=== PATIENT | female | born 1945 | race African-American/Black ===

== ENCOUNTER 2017-06-24 21:21 | Inpatient (IN) ==
[2017-06-24] MEDS ORDERED: VERSED IV ONE (21:25)
[2017-06-24 21:45] LABS: MANUAL DIFF NEEDED? NO
[2017-06-24 21:48] LABS: BASO% 0.4 % (0.0-0.8); EOS# 0.12 X1000 (0.0-0.7); EOS% 2.3 % (0.0-10.0); HEMATOCRIT 35.7 % (37.0-47.0); HEMOGLOBIN 11.4 g/dL (12.0-16.0); LYMPH# 2.17 X1000 (1.2-3.4); LYMPH% 42.1 % (20.5-51.1); MCHC 31.9 g/dL (33-37); MCV 87.7 FL (81-99); MONO# 0.39 X1000 (0.11-0.59); MONO% 7.6 % (1.7-9.3); MPV 10.5 FL (7.4-10.4); NEUT% 47.6 % (42.2-75.2); PLT 178 X1000 (130-400); RBC 4.07 XMIL (4.2-5.4)
[2017-06-24 22:02] LABS: ALBUMIN 3.9 g/dL (3.5-5.0); POTASSIUM 3.6 mmol/L (3.5-5.1); TOTAL BILIRUBIN 0.61 mg/dL (0.20-1.00); TOTAL PROTEIN 7.6 g/dL (6.3-8.3)
[2017-06-24 22:46] LABS: BILIRUBIN URINE NEGATIVE (NEGATIVE); BLOOD URINE NEGATIVE (NEGATIVE); COLOR YELLOW; GLUCOSE URINE NEGATIVE (NEGATIVE); LEUKOCYTES URINE MODERATE (NEGATIVE); NITRITE URINE NEGATIVE (NEGATIVE); PH URINE 6.5; PROTEIN URINE 30 mg/dL (NEGATIVE); SP GRAVITY URINE 1.006; TURBIDITY URINE HAZY (CLEAR); URINE MICRO REVIEW NEEDED? NO; UROBILINOGEN URINE NORMAL (NORMAL)
[2017-06-24 22:47] LABS: URINE SOURCE CATH
[2017-06-24 22:48] LABS: UR EPITHELIAL CELLS <10 /HPF (<10); URINE BACTERIA 1+ /HPF; URINE CULTURE NEEDED? YES; URINE RBC 20-40 /HPF (<10); URINE WBC <10 /HPF (<10)
[2017-06-24 23:04] LABS: UR AMPHETAMINES QUAL NONE DETECTED (NONE DETECT); UR BARBITUATES QUAL NONE DETECTED (NONE DETECT); UR BENZODIAZEPIN QUAL PRESUMPTIVE POSITIVE (NONE DETECT); UR CANNABINOIDS QUAL NONE DETECTED (NONE DETECT); UR COCAINE QUAL NONE DETECTED (NONE DETECT); UR METHADONE QUAL NONE DETECTED (NONE DETECT); UR OPIATES QUAL NONE DETECTED (NONE DETECT); UR OXYCODONE QUAL NONE DETECTED (NONE DETECT); UR PCP QUAL NONE DETECTED (NONE DETECT)
[2017-06-25] MEDS ORDERED: NS 1,000 ML IV ONE (01:02)
[2017-06-25] MEDS ORDERED: TYLENOL PO PRN (01:02)
[2017-06-25] MEDS ORDERED: ZOFRAN IV PRN (01:02)
[2017-06-25] MEDS ORDERED: KEPPRA PO ONE (01:02)
[2017-06-25] MEDS ORDERED: ATIVAN IV PRN (01:05)
[2017-06-25 07:19] LABS: HEMATOCRIT 33.2 % (37.0-47.0); HEMOGLOBIN 10.4 g/dL (12.0-16.0); MCH 27.6 PG (27-31); MCHC 31.3 g/dL (33-37); MCV 88.1 FL (81-99); MPV 10.3 FL (7.4-10.4); RBC 3.77 XMIL (4.2-5.4)
[2017-06-25 07:45] LABS: CALCIUM 9.2 mg/dL (8.8-10.2); POTASSIUM 3.9 mmol/L (3.5-5.1)
[2017-06-25] MEDS: LOTENSIN PO SCH (09:16)
[2017-06-25] MEDS: CELEXA PO SCH (09:16)
[2017-06-25] MEDS: ASPIRIN EC PO SCH (09:17)
[2017-06-25] MEDS: KEPPRA PO SCH ×2 (09:17→22:41)
[2017-06-25] MEDS: LOVENOX SUBQ SCH (09:20)
[2017-06-25] MEDS: LIPITOR PO SCH (22:41)
[2017-06-26] MEDS: LOVENOX SUBQ SCH (06:33)
[2017-06-26] MEDS: ASPIRIN EC PO SCH (08:32)
[2017-06-26] MEDS: CELEXA PO SCH (08:32)
[2017-06-26] MEDS: LOTENSIN PO SCH (08:33)
[2017-06-26] MEDS: KEPPRA PO SCH ×2 (08:33→21:50)
[2017-06-26] MEDS: LIPITOR PO SCH (21:50)
[2017-06-27] MEDS: LOVENOX SUBQ SCH (05:32)
[2017-06-27] MEDS ORDERED: CYANOCOBALAMIN IM ONE (06:13)
[2017-06-27] MEDS: ASPIRIN EC PO SCH (08:19)
[2017-06-27] MEDS: CELEXA PO SCH (08:19)
[2017-06-27] MEDS: KEPPRA PO SCH ×2 (08:19→21:39)
[2017-06-27] MEDS: NORVASC PO SCH (08:19)
[2017-06-27] MEDS: LOTENSIN PO SCH (08:19)
[2017-06-27] MEDS: LIPITOR PO SCH (21:39)
[2017-06-28] MEDS: SEPTRA DS PO SCH ×2 (00:58→08:23)
[2017-06-28] MEDS: LOVENOX SUBQ SCH (06:11)
[2017-06-28] MEDS ORDERED: CYANOCOBALAMIN IM ONE (06:32)
[2017-06-28 06:41] LABS: EOS# 0.16 X1000 (0.0-0.7); EOS% 3.5 % (0.0-10.0); HEMATOCRIT 36.7 % (37.0-47.0); HEMOGLOBIN 11.6 g/dL (12.0-16.0); LYMPH# 1.17 X1000 (1.2-3.4); LYMPH% 25.7 % (20.5-51.1); MANUAL DIFF NEEDED? NO; MCH 27.8 PG (27-31); MCHC 31.6 g/dL (33-37); MONO# 0.43 X1000 (0.11-0.59); MONO% 9.4 % (1.7-9.3); MPV 10.4 FL (7.4-10.4); NEUT% 61.4 % (42.2-75.2); PLT 170 X1000 (130-400); RBC 4.17 XMIL (4.2-5.4)
[2017-06-28 07:00] LABS: ALBUMIN 3.4 g/dL (3.5-5.0); CALCIUM 9.1 mg/dL (8.8-10.2); POTASSIUM 3.6 mmol/L (3.5-5.1); TOTAL BILIRUBIN 0.49 mg/dL (0.20-1.00); TOTAL PROTEIN 7.2 g/dL (6.3-8.3)
[2017-06-28 07:17] LABS: HEMOGLOBIN A1C 5.1 % (4.8-6.0)
[2017-06-28 07:49] VITALS: BP 142/68
[2017-06-28] MEDS: ASPIRIN EC PO SCH (08:22)
[2017-06-28] MEDS: NORVASC PO SCH (08:22)
[2017-06-28] MEDS: CELEXA PO SCH (08:22)
[2017-06-28] MEDS: KEPPRA PO SCH (08:22)
[2017-06-28] MEDS: LOTENSIN PO SCH (08:23)
== END 2017-06-28 16:35 | disposition home or self-care (01) ==
LOC: ED 21:21 → 4N 21:21 → SUATTDRO 06-25 01:20 → INTOOBSV 06-25 01:20 → OBSVTOIN 06-25 01:20
PROVIDERS: ADMIT Internal Medicine; ATTEND Internal Medicine

== ENCOUNTER 2019-05-29 19:59 | Inpatient (IN) ==
--- NOTE | 2019-05-29 20:23 | PROVIDER DOCUMENTATION ---
HPI-Neurological Disorder - General Chief Complaint: General Adult Stated Complaint: WEAKNESS Time Seen by Provider: 05/29/19 20:00 Source: patient, family Allergies/Adverse Reactions: Patient Allergies Allergy/AdvReac Type Severity Reaction Status Date / Time Penicillins Allergy Unknown Verified 06/24/17 22:12 Home Medications: Home Medication List Medication Instructions Recorded Confirmed Last Taken Type ATORVAstatin [Lipitor] 10 mg PO QPM 06/24/17 06/25/17 06/24/17 18:00 History BENAZEpril [Lotensin] 20 mg PO DAILY 06/24/17 06/25/17 06/24/17 08:00 History Citalopram [Celexa] 40 mg PO DAILY 06/24/17 06/25/17 06/24/17 08:00 History Aspirin [Adult Low Dose Aspirin EC] 81 mg PO DAILY 06/25/17 06/25/17 06/24/17 08:00 History Aspirin [Lo-Dose Aspirin EC] 81 mg PO DAILY 06/25/17 06/25/17 Unknown History Acetaminophen [Tylenol] 650 mg PO Q6H PRN PRN #0 tablet 06/28/17 Unknown Rx Amlodipine [Norvasc] 5 mg PO DAILY tablet 06/28/17 Unknown Rx Citalopram [Celexa] 40 mg PO DAILY tablet 06/28/17 Unknown Rx Sulfamethoxazole/Tmp D.s. [Septra 1 each PO BID tablet 06/28/17 Unknown Rx Ds] - History of Present Illness-Neuro Nature of Presenting Problem: 73 YOF PRESENTS VIA FAMILY FOR AMS AND HALLUCINATIONS. THE SON REPORTS SHE WAS TREATED AT [facility] ON 05/24/19 FOR R INNER EAR INFECTION AND DID NOT COMPLETE ABX. THE PATIENT IS CALM AND DENIES ALL SYMPTOMS OTHER THAN R EAR PAIN. Severity: reports: mild Onset/Duration: reports: unsure Timing: reports: still present Context: reports: recent infection, other (AMS) Character of Altered Mental Status: reports: confused, other (HALLUCINATIONS PER FAMILY) Any recent trauma/injury?: reports: none Character of Deficits: denies: new weakness, altered sensation, vision problem/glaucoma, impaired speech, impaired swallowing, decreased ability to stand, decreased ability to walk, falling New weakness or altered sensation location:: reports: none Cognitive Baseline: alert but confused Gait Baseline: walks without assistance Associated Symptoms: reports: confusion, weakness, other (HALLUCINATIONS) Similar Symptoms Previously?: No Recently seen or treated by another doctor?: Yes ([facility] ON 05/24) Review of Systems - Adult - REVIEW OF SYSTEMS - ADULT Constitutional: reports: no symptoms reported. denies: see HPI, chills, fever, fatique, night sweats, weight gain, weight loss, other Eyes: reports: no symptoms reported. denies: see HPI, discharge, dry eyes, decreased vision, blurred vision, double vision, eye pain, redness, other Ears, Nose, Mouth & Throat: reports: see HPI, ear pain. denies: no symptoms reported, ear discharge, hearing loss, tinnitus, epistaxis, sinus problem, nose pain, loose teeth, mouth/dental pain, mouth swelling, hoarseness, throat pain, throat swelling, other Cardiovascular: reports: no symptoms reported. denies: see HPI, chest pain, edema, heart murmur, irregular heart rate, orthopnea, palpitations, poor circu lation, PND, syncope, other Respiratory: reports: no symptoms reported. denies: see HPI, chronic cough, cough, dyspnea on exertion, excessive sputum production, hemoptysis, pleurisy, shortness of breath, wheezing, other Gastrointestinal: reports: no symptoms reported. denies: see HPI, abdominal pain, hematemesis, constipation, diarrhea, difficulty swallowing, frequent heartburn, nausea, poor appetite, rectal bleeding, vomiting, other Genitourinary: reports: no symptoms reported. denies: see HPI, dysuria, discharge, frequency, flank pain, frequent UTI's, hematuria, hesitency, incontinence, urinary retention, urgency, other Musculoskeletal: reports: muscle weakness. denies: no symptoms reported, see HPI, bone pain, back pain, frequent leg cramps, joint pain, joint swelling, muscle aches, neck pain, other Integumentary: reports: no symptoms reported. denies: see HPI, hives, hair loss, itching, mole changes, nail changes, rash, skin sores/ulcer, skin thickening, other Neurological: reports: no symptoms reported. denies: see HPI, ataxia, dizziness/vertigo, headache/migraines, loss of balance, numbness, paresthesia, seizure, slurred speech, syncope, tremors, other Psychiatric: reports: see HPI. denies: no symptoms reported, anxiety, anti- depressant use, alcohol/drug dependence, depression, emotional problems, insomnia, panic attacks, suicidal thoughts, other Endocrine: reports: no symptoms reported. denies: see HPI, change in skin pigment, excessive sweating, goiter, cold intolerance, heat intolerance, increased hunger, increased thirst, polyuria, other Hematologic/Lymphatic: reports: no symptoms reported. denies: see HPI, blood clots, easy bruising, low blood count, lymphedema, prolonged bleeding, swollen lymph nodes, transfusions, other Allergic/Immunologic: reports: no symptoms reported. denies: see HPI, allergic reactions, allergic rhinitis, asthma, eczema, food allergy, frequent infections, hay fever, hives, positive PPD, urticaria, other Past History - Adult - PAST MEDICAL HISTORY-ADULT Review of Records: reports: Nursing Assessment Review, Social history reviewed & non-contributory. Major Childhood Illnesses: reports: denies history Cardiovascular: reports: HTN, hyperlipidemia Respiratory: reports: denies history Gastrointestinal: reports: denies history Obstetrical/Gynecological: reports: denies history Genitourinary: reports: denies history Musculoskeletal: reports: denies history Neurological: reports: CVA Psychiatric: reports: depression Endocrine/Immune: reports: denies history Other Conditions: reports: denies history - PRIOR SURGERIES/PROCEDURES Surgical/Procedure History: reports: BTL - IMMUNIZATION STATUS Childhood Immunizations: See Nurse Assessment Flu Vaccine: See Nurse Assessment - FAMILY HISTORY Family History: reviewed, not pertinent Physical Exam- Neurological - Physical Exam-Neuro Initial Vital Signs Reviewed: Yes General Appearance: appears well, alert, no apparent distress Eye Exam: bilateral eye: normal inspection, PERRL HENMT: normocephalic/atraumatic, moist mucous membranes, TM abnormal Head Injury: no evidence of injury Neck: non-tender, full range of motion, supple Respiratory: chest non-tender, lungs clear, normal breath sounds, no pleuratic chest pain, no respiratory distress, no accessory muscle use Cardiovascular: normal peripheral pulses, regular rate, rhythm Abdominal Exam: normal bowel sounds, non tender, soft Lymphatic: no adenopathy Extremity: normal range of motion, non-tender cleat feeder Exam: normal hearing, PERRL Coordination/Gait: normal finger to nose Motor/Sensory: no motor deficit, no sensory deficit, no pronator drift Neurologic: grossly normal Integumentary: normal color, normal turgor, warm/dry Psych/Mental Status: normal mood/affect, oriented x 3 - Glascow Coma Scale Best Eye Response: (4) open spontaneously Best Verbal Response: (4) confused conversation Best Motor Response: (6) obeys commands Progress - PLAN OF CARE/RESULTS Progress/Plan/Lab Results: Vital Signs - 8 hr 05/29/19 20:03 Temperature 98.1 F Pulse Rate 76 Respiratory Rate 16 Blood Pressure 116/57 O2 Sat by Pulse Oximetry 99 Laboratory Results - last 24 hr 05/29/19 05/29/19 05/29/19 20:28 20:29 20:29 WBC 8.76 RBC 3.89 L Hgb 10.8 L Hct 30.3 L MCV 77.9 L MCH 27.8 MCHC 35.6 RDW Std Deviation 14.3 Plt Count 131 MPV 12.0 H Immature Gran % (Auto) 0.8 H Neut % (Auto) 79.4 H Lymph % (Auto) 8.1 L [place] % (Auto) 11.0 H Eos % (Auto) 0.2 Baso % (Auto) 0.5 Immature Gran # (Auto) 0.07 H Neut # (Auto) 6.96 H Lymph # (Auto) 0.71 L [place] # (Auto) 0.96 H Eos # (Auto) 0.02 Baso # (Auto) 0.04 PT INR PTT (Actin FS) Sodium 134 L Potassium 3.9 Chloride 89 L Carbon Dioxide 18 L Anion Gap 27 BUN 120 H Creatinine 9.6 H Estimated GFR/1.73 m2 4 BUN/Creatinine Ratio 13 Glucose 119 H POC Glucose 115 H Calculated Osmolality 308 Calcium 8.8 Total Bilirubin 2.90 H AST 36 H ALT 25 Alkaline Phosphatase 134 H Total Protein 7.6 Albumin 3.1 L Globulin 5.0 Albumin/Globulin Ratio 1.0 Urine Source Urine Color Urine Clarity Urine pH Ur Specific [place] Urine Protein Urine Ketones Urine Blood Urine Nitrite Urine Bilirubin Urine Urobilinogen Urine Microscopic RBC Urine WBC Urine Microscopic WBC Ur Epithelial Cells Urine Bacteria Urine Glucose Urine Opiates Screen Ur Oxycodone Screen Urine Methadone Screen U Propoxyphene Qual Ur Barbituates Screen Ur Tricyclics Screen Ur Phencyclidine Scrn Ur Amphetamines Screen U Methamphetamines Scrn U Benzodiazepines Scrn Urine Cocaine Screen U Cannabinoids Screen 05/29/19 05/29/19 05/29/19 20:29 21:13 21:13 WBC RBC Hgb Hct MCV MCH MCHC RDW Std Deviation Plt Count MPV Immature Gran % (Auto) Neut % (Auto) Lymph % (Auto) [place] % (Auto) Eos % (Auto) Baso % (Auto) Immature Gran # (Auto) Neut # (Auto) Lymph # (Auto) [place] # (Auto) Eos # (Auto) Baso # (Auto) PT 14.2 INR 1.05 PTT (Actin FS) 27.4 Sodium Potassium Chloride Carbon Dioxide Anion Gap BUN Creatinine Estimated GFR/1.73 m2 BUN/Creatinine Ratio Glucose POC Glucose Calculated Osmolality Calcium Total Bilirubin AST ALT Alkaline Phosphatase Total Protein Albumin Globulin Albumin/Globulin Ratio Urine Source CLEAN CATCH Urine Color YELLOW Urine Clarity SL. CLOUDY A Urine pH 5.0 Ur Specific [place] 1.010 Urine Protein TRACE A Urine Ketones 1+(Small) A Urine Blood 2+ A Urine Nitrite NEGATIVE Urine Bilirubin NEGATIVE Urine Urobilinogen 1 Urine Microscopic RBC 10-20 A Urine WBC TRACE A Urine Microscopic WBC <10 Ur Epithelial Cells <10 Urine Bacteria 2+ Urine Glucose NEGATIVE Urine Opiates Screen NONE DETECTED Ur Oxycodone Screen NONE DETECTED Urine Methadone Screen NONE DETECTED U Propoxyphene Qual NONE DETECTED Ur Barbituates Screen NONE DETECTED Ur Tricyclics Screen NONE DETECTED Ur Phencyclidine Scrn NONE DETECTED Ur Amphetamines Screen NONE DETECTED U Methamphetamines Scrn NONE DETECTED U Benzodiazepines Scrn NONE DETECTED Urine Cocaine Screen NONE DETECTED U Cannabinoids Screen NONE DETECTED Orders Category Date Time Status FSBS [Finger Stick Blood Sugar (ED)] DIRECTED Care 05/29/19 20:16 Active Saline Loc NOW Care 05/29/19 20:[address] HEAD W/O CONTRAST [CT] Stat Exams 05/29/19 20:15 Completed CBC WITH ELECTRONIC DIFF [HEME] Stat Lab 05/29/19 20:29 Completed COMPREHENSIVE METABOLIC PANEL [CHEM] Stat Lab 05/29/19 20:29 Completed PROTIME WITH INR [COAG] Stat Lab 05/29/19 20:29 Completed PTT [COAG] Stat Lab 05/29/19 20:29 Completed UA NIMS W/REFLEX CULT PL [URINALYSIS] Stat Lab 05/29/19 21:13 Completed URINE CULTURE [RM] Routine Lab 05/29/19 21:38 Ordered URINE DRUG SCREEN PL Stat Lab 05/29/19 21:13 Completed 0.9% Sodium Chloride Inj [Ns] 1,000 ml Med 05/29/19 21:25 Active IV 999 mls/hr EKG [EKG] Stat Ther 05/29/19 20:23 Ordered Result Diagrams: 05/29/19 20:29 05/29/19 20:29 - CT/MRI 1 CT Study: Head Impression: See EMR Report (EXAM: CT HEAD W/O CONTRAST 05/29/2019 HISTORY: AMS TECHNIQUE: This exam was performed using automated exposure control, adjustment of mA or kV according to patient size, and/or use of iterative reconstruction technique. COMMENT: The current study is compared with the previous examination of 06/24/2017 there are encephalomalacic changes in the frontal white matter bilaterally and posteriorly in the white matter and cortex of the posterior left parietal lobe. These findings were also present at the time the previous study. There is a small lacune in the basal ganglia on the right which was also present previously. There is no evidence of bleed or abnormal extra-axial fluid collection. The appearance of the calvarium has not changed significantly in the visualized paranasal sinuses are clear. IMPRESSION: Chronic encephalomalacic changes. No evidence of acute disease. Electronically signed by Kolby Leon 05/29/2019 8:49 PM 05/29/192048 In terpreting Physician: Kolby Leon MD Dictated Date/Time: 05/29/192046 cc: Lexy Reynoso; Den Esquivel MD) - CONSULTS/PCP/HOSPITALIST Notification #1 *Consult/PCP/Hospitalist*: dr GIRARD Time Discussed: 21:49 Consult Disposition: Admit Departure - Departure Date of Disposition Decision: 05/29/19 Time of Disposition Decision: 21:49 DIAGNOSIS: Acute renal failure, UTI (urinary tract infection) Disposition: HOME 01 Certified Medical Emergency: Emergent Condition: Stable Referrals and Follow-Ups: Den Esquivel MD [Primary Care Provider] - - Critical Care Note This patient required my direct & personal management of CC.: No Attestation - Physician/ ROB Attestation Patient care was provided by Advanced Practice Provider:: Yes Advanced Practice Provider:: Lexy Reynoso Advanced Practice Provider documentation review:: The Mid-level provider documentation, treatment plan and medical decision making was reviewed by the physician who agrees with all treatment and medical decision making by the MLP. The physician spent face to face time with patient:: No Advanced Practice Provider documentation review:: Supervising physician onsite and consulted in the evaluation and care of this patient. The physician did not have a face to face encounter with the patient.
--- NOTE | 2019-05-29 20:52 | Diag Imaging Result Doc PS360 ---
EXAM: CT HEAD W/O CONTRAST 05/29/2019 HISTORY: AMS TECHNIQUE: This exam was performed using automated exposure control, adjustment of mA or kV according to patient size, and/or use of iterative reconstruction technique. COMMENT: The current study is compared with the previous examination of 06/24/2017 there are encephalomalacic changes in the frontal white matter bilaterally and posteriorly in the white matter and cortex of the posterior left parietal lobe. These findings were also present at the time the previous study. There is a small lacune in the basal ganglia on the right which was also present previously. There is no evidence of bleed or abnormal extra-axial fluid collection. The appearance of the calvarium has not changed significantly in the visualized paranasal sinuses are clear. IMPRESSION: Chronic encephalomalacic changes. No evidence of acute disease. Electronically signed by Kolby Leon 05/29/2019 8:49 PM
[2019-05-29 21:05] LABS: BASO# 0.04 X1000 (0.0-0.2); BASO% 0.5 % (0.0-0.8); EOS# 0.02 X1000 (0.0-0.7); EOS% 0.2 % (0.0-10.0); HEMATOCRIT 30.3 % (37.0-47.0); HEMOGLOBIN 10.8 g/dL (12.0-16.0); IMM GRAN# 0.07 X1000 (0.0-0.04); IMM GRAN% 0.8 % (0.0-0.5); LYMPH# 0.71 X1000 (1.2-3.4); LYMPH% 8.1 % (20.5-51.1); MCH 27.8 PG (27-31); MCHC 35.6 g/dL (33-37); MCV 77.9 FL (81-99); MONO# 0.96 X1000 (0.11-0.59); NEUT# 6.96 X1000 (1.4-6.5); NEUT% 79.4 % (42.2-75.2); PLT 131 X1000 (130-400); RBC 3.89 XMIL (4.2-5.4); RDW 14.3 % (11.5-14.5); WBC 8.76 X1000 (4.8-10.8)
[2019-05-29 21:17] LABS: INR 1.05; PROTIME 14.2 Seconds (11.0-16.0)
[2019-05-29 21:18] LABS: PTT 27.4 Seconds (22.3-41.8)
[2019-05-29 21:23] LABS: ALBUMIN 3.1 g/dL (3.5-5.0); CALCIUM 8.8 mg/dL (8.8-10.2); CREATININE 9.6 mg/dL (0.5-0.9); POTASSIUM 3.9 mmol/L (3.5-5.1); TOTAL BILIRUBIN 2.9 mg/dL (0.20-1.00); TOTAL PROTEIN 7.6 g/dL (6.3-8.3)
[2019-05-29] MEDS ORDERED: NS 1,000 ML IV ONE (21:25)
[2019-05-29 21:36] LABS: BILIRUBIN URINE NEGATIVE (NEGATIVE); BLOOD URINE 2+ (NEGATIVE); GLUCOSE URINE NEGATIVE (NEGATIVE); KETONE URINE 1+(Small) mg/dL (NEGATIVE); LEUKOCYTES URINE TRACE (NEGATIVE); NITRITE URINE NEGATIVE (NEGATIVE); PROTEIN URINE TRACE mg/dL (NEGATIVE); UROBILINOGEN URINE 1 mg/dL
[2019-05-29 21:37] LABS: CLARITY SL. CLOUDY (CLEAR); COLOR YELLOW
[2019-05-29 21:38] LABS: UR AMPHETAMINES QUAL NONE DETECTED (NONE DETECT); UR BARBITUATES QUAL NONE DETECTED (NONE DETECT); UR BENZODIAZEPIN QUAL NONE DETECTED (NONE DETECT); UR CANNABINOIDS QUAL NONE DETECTED (NONE DETECT); UR COCAINE QUAL NONE DETECTED (NONE DETECT); UR METHADONE QUAL NONE DETECTED (NONE DETECT); UR METHAMPHETAMINE QUAL NONE DETECTED (NONE DETECT); UR OPIATES QUAL NONE DETECTED (NONE DETECT); UR OXYCODONE QUAL NONE DETECTED (NONE DETECT); UR PCP QUAL NONE DETECTED (NONE DETECT); UR PROPOXYPHENE QUAL NONE DETECTED (NONE DETECT); UR TCA QUAL NONE DETECTED (NONE DETECT); URINE BACTERIA 2+ /HFP; URINE EPITHELIAL CELLS <10 /HPF (<10); URINE SOURCE CLEAN CATCH; URINE WBC <10 /HPF (<10)
[2019-05-30] MEDS ORDERED: TYLENOL PO PRN (00:26)
[2019-05-30] MEDS ORDERED: ZOFRAN IV PRN (00:26)
[2019-05-30] MEDS ORDERED: NS 1,000 ML IV SCH (00:30)
[2019-05-30] MEDS ORDERED: NS 500 ML IV ONE (00:38)
[2019-05-30] MEDS: SODIUM BICARBONATE 8.4% 100 MEQ in D5W 1,000 ML IV SCH ×2 (01:21→13:46)
--- NOTE | 2019-05-30 01:30 | HISTORY AND PHYSICAL ---
REASON FOR ADMISSION: Confusion for the last couple of days. HISTORY OF PRESENT ILLNESS: Ms. Vesta Lemos is a 73-year-old, woman with past medical history of hypertension, depression, hyperlipidemia, and 2 prior CVAs. Patient is an extremely unreliable historian, no family members at bedside to give any history. The past says she came in because she was feeling cold and because her son was concerned that she was not looking right. Other than that, the patient herself denies any cardiorespiratory complaints, any GI or complaints, any genitourinary complaints. No focal neurological complaints. As I stated before, patient is not a reliable historian but from the records, it states patient had seen her primary care physician a few days ago for an ear infection, was prescribed some antibiotics, type unknown. Over the last day or so, the patient started becoming more confused culminating with visual hallucinations at home. She was then brought into the ER to be evaluated, and it was noted that her BUN was elevated at 120, creatinine was 9.6. The patient denies any fever or chills, any cough, any other additional cardiorespiratory issues. Currently, she only feels very cold. She denies any otalgia or any ear infections at this point in time. REVIEW OF SYSTEMS: Negative per patient. ALLERGIES: Penicillin. HOME MEDICATIONS: Have not been reconciled but, per her old records, she was an MAHENDRA inhibitor, and I see that she is also taken (per old records), Bactrim, Norvasc, Celexa, aspirin, atorvastatin. She denies any new medications or any [id number] medications. SURGICAL HISTORY: Tubal ligation, appendectomy, tonsillectomy. SOCIAL HISTORY: Lives alone. Does not smoke, drink, or use illicit drugs. According to the patient, her family members check on her. She also tells me that she walks a lot even in the hot sun, but can not tell me if she has been sweating excessively. FAMILY HISTORY: Notable for diabetes, heart disease, breast cancer, DVTs. LABORATORY WORK: White count 8000, hemoglobin 10 and hematocrit 30, platelets 131,000, 79% neutrophils. BUN 120, creatinine 9.6. Sodium 134, bicarb is 18, total bilirubin is 3, AST 36, ALT 25, alkaline phosphatase 134. PVT is normal. Urine drug screen is negative. Urinalysis 2+ blood, 1+ ketone, 2+ bacteria, 10 to [address], chronic encephalomalacia noted. PHYSICAL EXAMINATION: VITAL SIGNS: Blood pressure is 112/50, heart rate is 75, respiratory rate is 19, temperature 98.5 degrees. GENERAL: An elderly woman. She is alert and oriented to person and place, but not to time. HEENT: Head is normocephalic, atraumatic. Eyes: FERMIN, EOMI. She is anicteric. Not pale. ENT: Shows that has mild dry xerostomia. No oropharyngeal exudates noted. There is some cyanosis. NECK: Supple. No JVD or carotid bruit. No thyromegaly. CHEST: Clear when auscultated. Good air entry both lung vital. CARDIOVASCULAR: First and second heart sounds are heard. No gallops, murmurs, rubs. Rhythm is regular. ABDOMEN: Slightly protuberant, soft, nontender. No mass or organomegaly. Bowel sounds are hypoactive. RECTAL: Deferred at this time. EXTREMITIES: Patient has slightly diminished pulses but irregular, symmetrical. Trace edema. No clubbing or peripheral cyanosis. NEUROLOGICAL: No gross focal deficits. No asterixis. SKIN: Intact. No breakdown or lesions are noted. Good turgor. MUSCULOSKELETAL: Grossly normal. ASSESSMENT: 1. Acute kidney injury, KDIGO stage III. 2. Hypertension. 3. Metabolic encephalopathy. 4. Anemia. 5. Pyuria. PLAN: The patient will be hydrated with normal saline, but maintenance fluids over the next 24 hours with sodium bicarb. The etiology of this could be multifactorial. Based on her home medication list, patient is on an MAHENDRA inhibitor and may have taken a sulfa drug, i.e. Bactrim. The combination of these 2 may have precipitated acute kidney injury, but also, the patient may have also had volume loss from sweating, for which she says she engages in walking outside in the hot sun. We will consult Dr. Ferreira to see patient. We will also order an abdominal ultrasound to evaluate kidneys to rule out obstruction, and also to evaluate for elevated bilirubin. Avoid any potentially nephrotoxic medications. We will repeat a BMP daily and monitor progress. May need to put in a Jeffries catheter over the next 24 to 48 hours to monitor output. If patient is having a hard time comprehending instructions, I do believe patient is mildly confused and patient, in my opinion, is able to void in the potty chair if given a chance. Because of evidence of pyuria in the patient's urinalysis, I would be concerned about the patient having more extensive urinary tract infection. A Jeffries catheter was placed. Would also recommend very conservative blood pressure control in light of decreased renal perfusion. cc: Steffen Yanez MD MTDD
[2019-05-30 06:41] LABS: UR CREAT RANDOM 79.6 mg/dL (11-20)
[2019-05-30 07:02] LABS: BASO# 0.01 X1000 (0.0-0.2); BASO% 0.2 % (0.0-0.8); EOS# 0.02 X1000 (0.0-0.7); EOS% 0.3 % (0.0-10.0); HEMOGLOBIN 8.4 g/dL (12.0-16.0); IMM GRAN# 0.03 X1000 (0.0-0.04); IMM GRAN% 0.5 % (0.0-0.5); LYMPH# 0.63 X1000 (1.2-3.4); LYMPH% 9.6 % (20.5-51.1); MCH 26.9 PG (27-31); MCV 76.9 FL (81-99); MONO# 0.78 X1000 (0.11-0.59); MONO% 11.9 % (1.7-9.3); MPV 11.1 FL (7.4-10.4); NEUT# 5.06 X1000 (1.4-6.5); NEUT% 77.5 % (42.2-75.2); PLT 125 X1000 (130-400); RBC 3.12 XMIL (4.2-5.4); RDW 13.8 % (11.5-14.5); WBC 6.53 X1000 (4.8-10.8)
[2019-05-30 07:15] LABS: ALB/GLOB RATIO 0.8; ALBUMIN 2.4 g/dL (3.5-5.0); CREATININE 8.1 mg/dL (0.5-0.9); POTASSIUM 3.3 mmol/L (3.5-5.1); TOTAL BILIRUBIN 2.19 mg/dL (0.20-1.00); TOTAL PROTEIN 5.6 g/dL (6.3-8.3)
--- NOTE | 2019-05-30 07:32 | PROGRESS NOTE ---
DATE: 05/30/2019 SUBJECTIVE: Ms. Lemos is doing fair. Patient admitted yesterday with confusion, metabolic encephalopathy, acute kidney injury. The patient is vague and a poor historian. The patient went to the urgent care for an ear infection. The patient was given antibiotics which patient took 3 to 4 pills. Patient had significant diarrhea. According to son, she had some confusion. The patient was brought to the emergency room. She was found to have acute kidney injury. The patient is very vague and a poor historian. The patient had a history of hypertension, seizure disorder, chronic kidney disease, depression. Admission history and physical noted. OBJECTIVE: Vital Signs: Blood pressure 116/42, pulse 72, respirations 18, temperature 99.3 degrees. Skin: Senile turgor. Neck: Supple. No JVD. Lungs: Bibasilar crepitations. Heart: S1 and S2 heard. Abdomen: Soft, nontender. Bowel sounds present. TYRE RETREADER: Alert, awake. Able to move all 4 limbs. Admission Laboratory Data: Noted. CBC done today. Hemoglobin 8.4, hematocrit 24. BMP result is pending. CONSIDERATION: 1. Acute kidney injury. 2. History of hypertension but blood pressure is low-normal. 3. History of otitis. I did offer patient to go to the ENT but patient could not go in the past. 4. Seizure disorder. 5. Chronic kidney disease. PLAN: I am going to check CPK to look for rhabdomyolysis. Continue rest of the treatment. IV hydration. Start her on Rocephin. Overall plan discussed with the family. They are in agreement. cc: Den Esquivel MD
[2019-05-30 08:19] LABS: BANDS 6 % (0-1); LYMPHS 2 % (21-51); MONO 6 % (1-9); SEGS 84 % (42-75)
[2019-05-30] MEDS: ROCEPHIN 1 GM in NS 50 ML IV SCH (11:22)
--- NOTE | 2019-05-30 15:10 | Diag Imaging Result Doc PS360 ---
EXAM: US RENAL 2 (RETROPER) COMPLETE 05/30/2019 HISTORY: AVERY TECHNIQUE: Renal ultrasound COMMENT: The right kidney is 9.9 x 4.6 x 4.1 cm the left is 9.5 x 4.5 x 4.7 cm. There is a 1.7 cm cyst in the upper pole of the left kidney. The bladder is not identified. IMPRESSION: No evidence of obstructive uropathy. Electronically signed by Kolby Leon 05/30/2019 3:08 PM
--- NOTE | 2019-05-30 18:08 | NEPHROLOGY CONSULTATION ---
DATE: 05/30/2019 REASON FOR ADMISSION: Confusion, weakness, acute kidney injury. CONSULTING PHYSICIAN: Dr. Yanez REASON FOR CONSULTATION: Assist with Management of Acute kidney injury. HISTORY OF PRESENT ILLNESS: This is a 73 -year-old female with a past medical history of cerebrovascular accident, seizure, hypertension, hyperlipidemia. The patient states that she had an ear infection and was sick. She states that she went to Urgent Care where she was placed on antibiotics. This appears to be doxycycline. There is some question if she had Bactrim as well. The patient stated that over the last several days she had worsening confusion. Family noted her having hallucinations. In the emergency room she was brought in for evaluation. She was noted to have an elevated BUN of 120, creatinine of 9.6, sodium 134, potassium 3.9, CO2 18. Her urine had trace protein, 1+ ketones, 2+ blood. She has been treated overnight with IV fluids. It was noted that her home medications have been held. This does include benazepril and today her creatinine is down to 8.1. Potassium 3.3, sodium 134, and CO2 has improved to 20. PAST MEDICAL HISTORY: As noted above. PAST SURGICAL HISTORY: She has had a tubal ligation, appendectomy, tonsillectomy. ALLERGIES: Penicillin. HOME MEDICATIONS: Lotensin, Celexa, aspirin, Norvasc, again doxycycline, Keppra. FAMILY HISTORY: Diabetes, heart disease. SOCIAL HISTORY: She has a son and [id number] who check on her on a regular basis. She is able to live at home. She is able to do all of her chores at home and cook and clean for herself. REVIEW OF SYSTEMS: Pertinent positives noted above in the history of present illness. Primarily confusion, hallucinations, decreased oral intake. PHYSICAL EXAMINATION: Vital Signs: Temperature 98.6, pulse 65, respiratory rate 18, blood pressure 113/51. Intake 1/5 liters, output was not measured. General: This is an elderly female, resting in bed. She is awake and alert. She does not appear in acute distress. HEENT: Normocephalic, atraumatic. PERRL. Neck: Supple without jugular venous distention. Cardiovascular: Regular rate and rhythm. There is no murmur or gallop appreciated. Pulmonary: She has equal excursion. She has no increased work of breathing. Abdomen: Soft, positive bowel sounds. No tenderness. : Not inspected. EXTREMITIES: No clubbing, cyanosis or edema. Integumentary: Skin warm and dry. Neuro: Grossly nonfocal. LAB DATA: As noted above. Her most recent labs sodium 134, potassium 3.3, chloride 96, CO2 20, BUN 119, creatinine 8.1, calcium 8, albumin 2.4. ASSESSMENT/PLAN: 1. Acute kidney injury. The patient's old historical data indicate that back in 2017 she had a creatinine of 1.2 and 1.3. Appears to be underlying chronic disease with overlying acute kidney injury from decreased oral intake plus benazepril plus antibiotic use. Current use of doxycycline should not affect kidney function, however. It is unclear if she had been on Bactrim or another nephrotoxic antibiotic prior. We will complete her work up with urine electrolytes and a renal ultrasound. Would anticipate improvement within the next 24 hours. 2. Electrolytes, acid based balance. No change since the current treatment plan. 3. Hypertension. Currently controlled. Again hold her benazepril, use adjunct therapy as warranted. 4. Pyuria. She is on appropriately dosed antibiotics at this time for that in the form of ceftriaxone. Dictated by DAGMAR Márquez for Mark Ferreira MD Face to face encounter, data reviewed, discussed with Jean Paul Dyer on 05/30/19. I agree with the above assessment and plan of care. cc: MD Den Hart MD [facility]PITALBlane
[2019-05-31] MEDS: SODIUM BICARBONATE 8.4% 100 MEQ in D5W 1,000 ML IV SCH (00:56)
[2019-05-31] MEDS ORDERED: POTASSIUM CHLORIDE 10 MEQ in NS 1,000 ML IV SCH (04:15)
[2019-05-31] MEDS: ROCEPHIN 1 GM in NS 50 ML IV SCH (06:26)
[2019-05-31 06:50] LABS: ALB/GLOB RATIO 0.7; ALBUMIN 2.2 g/dL (3.5-5.0); CALCIUM 7.8 mg/dL (8.8-10.2); CREATININE 7.2 mg/dL (0.5-0.9); TOTAL BILIRUBIN 1.61 mg/dL (0.20-1.00); TOTAL PROTEIN 5.3 g/dL (6.3-8.3)
--- NOTE | 2019-05-31 06:55 | PROGRESS NOTE ---
DATE: 05/31/2019 SUBJECTIVE: Ms. Lemos is doing fair, tolerating fluid well. No symptoms suggestive of fluid overload or unusual shortness of breath. No typical chest pain or palpitations. Denied any nausea or vomiting. No high-grade fever or chills. Tolerating Rocephin well. No recent seizure- type episode. Patient admitted with acute renal failure. I reviewed her last labs done in my office recently, and her renal function was normal. I reviewed medication given from urgent care, and it was doxycycline. The medicine I gave her in the office was Ceftin or Omnicef for otitis. PAST MEDICAL HISTORY: Hypertension, seizure disorder, depression, hyperlipidemia, gastritis, history of CVA. OBJECTIVE: Vital Signs: Her vital signs are noted. Blood pressure 107/55, pulse 57, respirations 17, temperature 98.8 degrees. HEENT: Head is atraumatic, normocephalic. [place] conjunctivae. Anicteric sclerae. Extraocular muscle movement normal. Fundus cannot be penetrated. Good oral hygiene. No tonsillopharyngeal congestion or exudate. Neck: Supple. No JVD. Lungs: Bibasilar crepitations. Heart: S1 and S2 heard. Abdomen: Soft, globular. Bowel sounds present. Extremities: No cyanosis, clubbing. No acute DVT. Central Nervous System: Alert, awake, able to move all 4 limbs. ASSESSMENT: Patient's problems include: 1. Acute renal failure, most likely acute tubular necrosis, etiology not clear. On renal ultrasound, there was no evidence of obstructive uropathy. 2. History of hypertension, but patient has low blood pressure now. 3. Recurrent otitis. 4. Seizure disorder. 5. Hyperlipidemia. 6. Depression. PLAN: We will continue current treatment. Close observation. Gentle hydration, watch for fluid overload. The patient is on IV antibiotics. Her urinalysis did reveal UTI. Urine culture result is pending. Overall plan discussed with the patient. I did check total CPK to look for rhabdomyolysis, and it was negative. Overall plan discussed with the patient. cc: Den Esquivel MD
[2019-05-31 06:56] LABS: BASO# 0.02 X1000 (0.0-0.2); BASO% 0.3 % (0.0-0.8); EOS# 0.04 X1000 (0.0-0.7); EOS% 0.5 % (0.0-10.0); HEMATOCRIT 22.4 % (37.0-47.0); HEMOGLOBIN 7.9 g/dL (12.0-16.0); IMM GRAN# 0.09 X1000 (0.0-0.04); IMM GRAN% 1.2 % (0.0-0.5); LYMPH# 0.76 X1000 (1.2-3.4); LYMPH% 10.1 % (20.5-51.1); MCH 27.1 PG (27-31); MCHC 35.3 g/dL (33-37); MCV 76.7 FL (81-99); MONO# 0.83 X1000 (0.11-0.59); MPV 10.9 FL (7.4-10.4); NEUT# 5.78 X1000 (1.4-6.5); NEUT% 76.9 % (42.2-75.2); PLT 162 X1000 (130-400); RBC 2.92 XMIL (4.2-5.4); RDW 13.4 % (11.5-14.5); WBC 7.52 X1000 (4.8-10.8)
[2019-05-31 07:02] LABS: LYMPHS 6 % (21-51); MONO 10 % (1-9); NRBC 1 % (0-0); SEGS 82 % (42-75)
[2019-05-31 07:06] LABS: POTASSIUM 2.5 mmol/L (3.5-5.1)
[2019-05-31] MEDS ORDERED: KLOR-CON PO ONE ×3 (07:11→23:15)
--- NOTE | 2019-05-31 08:33 | Diag Imaging Result Doc PS360 ---
EXAM: CHEST-2 VIEWS 05/31/2019 HISTORY: hypoxia TECHNIQUE: PA and lateral chest COMMENT: There are ill-defined opacities in the posterior lower lobes bilaterally. The inspiration is slightly suboptimal. IMPRESSION: Bibasilar atelectasis versus pneumonia. Electronically signed by Kolby Leon 05/31/2019 8:31 AM
[2019-05-31] MEDS ORDERED: KEPPRA PO SCH ×2 (09:00)
[2019-05-31] MEDS: KEPPRA PO SCH ×2 (12:17→22:54)
[2019-05-31] MEDS: POTASSIUM CHLORIDE 10 MEQ in NS 1,000 ML IV SCH ×3 (12:17→22:54)
--- NOTE | 2019-05-31 14:29 | NEPHROLOGY PROGRESS NOTE ---
DATE: 05/31/2019 SUBJECTIVE: Patient resting in bed. No complaints. OBJECTIVE: Vital Signs: Temperature 98.8, pulse 57, respiratory rate 16, blood pressure 107/55. Intake 2.4 L; output not measured. General: This is an elderly female resting in bed. She does not appear in acute distress. HEENT: Normocephalic, atraumatic. FERMIN. Neck: Supple. There is no JVD. Cardiovascular: Regular rate and rhythm. Pulmonary: Clear bilaterally. Abdomen: Soft with positive bowel sounds. Extremities: There is no clubbing or cyanosis. Integumentary: Normal skin. LAB DATA: Sodium 133, potassium 2.5, CO2 26, creatinine 7.2 (8.1). Calcium 7.8. ASSESSMENT AND PLAN: Acute on chronic kidney disease. Renal function has continued to improve at a consistent rate since admission and treatment with intravenous fluids. Would continue this current treatment plan. The patient has no indication for intervention otherwise. Dictated by DAGMAR Márquez for Mark Ferreira MD Face to face encounter, data reviewed, discussed with Jean Paul Dyer on 05/31/19. I agree with the above assessment and plan of care. cc: MD Den Hart MD [facility]
[2019-05-31 16:07] LABS: ALB/GLOB RATIO 0.6; CALCIUM 7.8 mg/dL (8.8-10.2); CREATININE 7.4 mg/dL (0.5-0.9); POTASSIUM 3.2 mmol/L (3.5-5.1); TOTAL BILIRUBIN 1.26 mg/dL (0.20-1.00); TOTAL PROTEIN 5.6 g/dL (6.3-8.3)
[2019-06-01] MEDS: POTASSIUM CHLORIDE 10 MEQ in NS 1,000 ML IV SCH ×2 (01:31→11:43)
[2019-06-01 07:03] LABS: BASO# 0.01 X1000 (0.0-0.2); BASO% 0.1 % (0.0-0.8); EOS# 0.03 X1000 (0.0-0.7); EOS% 0.4 % (0.0-10.0); IMM GRAN# 0.12 X1000 (0.0-0.04); IMM GRAN% 1.5 % (0.0-0.5); LYMPH# 0.94 X1000 (1.2-3.4); LYMPH% 12.1 % (20.5-51.1); MCH 27.1 PG (27-31); MCHC 34.8 g/dL (33-37); MONO# 0.84 X1000 (0.11-0.59); MONO% 10.8 % (1.7-9.3); MPV 10.6 FL (7.4-10.4); NEUT# 5.83 X1000 (1.4-6.5); NEUT% 75.1 % (42.2-75.2); PLT 217 X1000 (130-400); RBC 2.95 XMIL (4.2-5.4); RDW 13.6 % (11.5-14.5); WBC 7.77 X1000 (4.8-10.8)
[2019-06-01 07:39] LABS: ALB/GLOB RATIO 0.6; CALCIUM 7.9 mg/dL (8.8-10.2); CREATININE 5.8 mg/dL (0.5-0.9); POTASSIUM 3.2 mmol/L (3.5-5.1); TOTAL BILIRUBIN 1.1 mg/dL (0.20-1.00); TOTAL PROTEIN 5.2 g/dL (6.3-8.3)
[2019-06-01] MEDS ORDERED: KLOR-CON PO ONE (07:40)
--- NOTE | 2019-06-01 08:04 | PROGRESS NOTE ---
DATE: 06/01/2019 SUBJECTIVE: Ms. Lemos is feeling better. She denied any unusual cough, expectoration. No shortness of breath. She denied any fever or chills. Tolerating medication and fluid well. Oral intake is better. No seizure-type episode. OBJECTIVE: Her vital signs are noted. Blood pressure this morning was low-normal. Skin: Senile turgor. Neck: Supple. No JVD. Lungs: Bibasilar crepitations. Heart: S1 and S2 heard. Abdomen: Soft, globular. Bowel sounds present. Extremities: No cyanosis, clubbing or acute deep venous thrombosis. TECHNICAL SOLUTIONS CONSULTANT: Alert, awake. Able to move all 4 limbs. CONSIDERATION: 1. Acute renal failure, most likely due to acute tubular necrosis. 2. Atelectasis. 3. Seizure disorder. 4. Hyperlipidemia. 5. History of hypertension. Blood pressure is low-normal. 6. Anemia. Her hemoglobin this morning was 8, hematocrit 23. PLAN: Electrolytes: Potassium 3.2. I am supplementing potassium. Magnesium checked yesterday and it was 1.9. Calcium 7.9. Premium Representative is following the patient with us. For seizure disorder, I did talk to the pharmacist and adjusted her Keppra level. We will continue seizure precaution. Continue rest of the treatment. Close observation. The patient is on deep venous thrombosis prophylaxis. Overall plan discussed with the patient and she is in agreement. cc: Den Esquivel MD
[2019-06-01] MEDS: ROCEPHIN 1 GM in NS 50 ML IV SCH (08:27)
[2019-06-01 10:14] LABS: URINE SOURCE CATH
[2019-06-01 10:17] LABS: BILIRUBIN URINE NEGATIVE (NEGATIVE); BLOOD URINE NEGATIVE (NEGATIVE); COLOR YELLOW; GLUCOSE URINE NEGATIVE (NEGATIVE); KETONE URINE NEGATIVE (NEGATIVE); LEUKOCYTES URINE NEGATIVE (NEGATIVE); NITRITE URINE NEGATIVE (NEGATIVE); PH URINE 5.5; PROTEIN URINE NEGATIVE (NEGATIVE); SP GRAVITY URINE 1.006; TURBIDITY URINE CLEAR (CLEAR); UROBILINOGEN URINE NORMAL (NORMAL)
[2019-06-01 10:18] LABS: UR EPITHELIAL CELLS <10 /HPF (<10); URINE BACTERIA NEGATIVE /HPF; URINE RBC <10 /HPF (<10); URINE WBC <10 /HPF (<10)
[2019-06-01] MEDS: KEPPRA PO SCH ×2 (11:43→19:59)
[2019-06-01 12:46] LABS: UR CREAT RANDOM 57.1 mg/dL (11-20); UR PROT RANDOM 6.2 mg/dL
--- NOTE | 2019-06-01 14:54 | NEPHROLOGY PROGRESS NOTE ---
DATE: 06/01/2019 SUBJECTIVE: She states she is doing well overall. Improving. Eating. No diarrhea. OBJECTIVE: Vital Signs: Blood pressure 97/48, heart rate 58, temperature 99.2 degrees. Intake 1.3 L. Output 2.2 L. PHYSICAL EXAMINATION: General: No acute distress. Skin: Warm and dry. Neck: Neck veins are not distended. Heart: PMI is nondisplaced. Regular rate and rhythm. No gallops. Lungs: Equal. No crackles. Abdomen: Soft, nontender. Bowel sounds present. Extremities: No edema, clubbing or cyanosis. IMPRESSION: Acute kidney injury. Progressive improvement. Creatinine 5.8 today. Presenting creatinine 9.6. She does have underlying stage 3a chronic kidney disease. Urine is bland. Continue IV fluids. cc: MD Den Hart MD
[2019-06-01] MEDS: NS + KCL 20 MEQ 1,000 ML IV SCH (19:59)
[2019-06-02] MEDS: NS + KCL 20 MEQ 1,000 ML IV SCH ×3 (05:36→16:17)
[2019-06-02 06:42] LABS: MAGNESIUM 1.8 mg/dL (1.5-2.7)
[2019-06-02 06:48] LABS: BASO# 0.02 X1000 (0.0-0.2); BASO% 0.2 % (0.0-0.8); EOS# 0.08 X1000 (0.0-0.7); HEMOGLOBIN 7.7 g/dL (12.0-16.0); IMM GRAN# 0.16 X1000 (0.0-0.04); IMM GRAN% 1.9 % (0.0-0.5); LYMPH# 1.26 X1000 (1.2-3.4); MCHC 33.5 g/dL (33-37); MCV 80.7 FL (81-99); MONO# 0.71 X1000 (0.11-0.59); MONO% 8.4 % (1.7-9.3); MPV 9.7 FL (7.4-10.4); NEUT# 6.18 X1000 (1.4-6.5); NEUT% 73.5 % (42.2-75.2); PLT 274 X1000 (130-400); RBC 2.85 XMIL (4.2-5.4); RDW 14.2 % (11.5-14.5); RETIC% 0.89 % (0.8-2.1); WBC 8.41 X1000 (4.8-10.8)
[2019-06-02 07:08] LABS: ALB/GLOB RATIO 0.6; ALBUMIN 2.1 g/dL (3.5-5.0); CALCIUM 7.8 mg/dL (8.8-10.2); CREATININE 4.4 mg/dL (0.5-0.9); POTASSIUM 4.3 mmol/L (3.5-5.1); TOTAL BILIRUBIN 0.91 mg/dL (0.20-1.00); TOTAL PROTEIN 5.6 g/dL (6.3-8.3)
--- NOTE | 2019-06-02 08:03 | Diag Imaging Result Doc PS360 ---
EXAM: CHEST-2 VIEWS HISTORY: hypoxia TECHNIQUE: Chest two views COMPARISON: 05/31/2019 FINDINGS: Poor inspiratory effort. The heart is not enlarged. The vessels are not distended. There are right basilar infiltrates and questionable tiny infiltrates in the left base. There are small bilateral pleural effusions. IMPRESSION: Small pleural effusions with basilar infiltrates Electronically signed by Gutierrez Pulido 06/02/2019 8:01 AM
[2019-06-02] MEDS: ROCEPHIN 1 GM in NS 50 ML IV SCH (10:07)
[2019-06-02] MEDS: KEPPRA PO SCH ×2 (10:07→20:37)
--- NOTE | 2019-06-02 12:22 | PROGRESS NOTE ---
DATE: 06/02/2019 SUBJECTIVE: Ms. Lemos is doing fair. Oral intake is fair. No high-grade fever or chills. Denied any nausea or vomiting. No unusual cough, expectoration. OBJECTIVE: Vital Signs: Noted. Neck: Is supple. No JVD. Lungs: Bibasilar crepitations. Heart: S1 and S2 heard. Abdomen: Soft, nontender. Bowel sounds present. Extremities: No cyanosis, clubbing. No acute DVT. MANAGER UROLOGY: Alert, awake, able to move all 4 limbs. LABORATORY DATA: Done today did reveal WBC count 8.41, hemoglobin 7.7, hematocrit 23, platelet count 274,000. Her reticulocyte count was 0.89. BUN 84, creatinine 4.4, this seems to be improving. Ferritin 627. Reticulocyte count result also reviewed. The patient's urine output is also improving, it was around 2100. Patient's chest x-ray revealed possible infiltrate. Patient is getting admitted with acute kidney injury. Could be due to ATN. She does have seizure disorder, anemia most likely of chronic disease, possible pneumonia on Rocephin. Will continue current treatment. I am going to add Zithromax, close observation. Overall plan discussed with the patient and family. I will add incentive spirometry. cc: Den Esquivel MD
--- NOTE | 2019-06-02 16:00 | NEPHROLOGY PROGRESS NOTE ---
DATE: 06/02/2019 SUBJECTIVE: She is feeling better. She states her ear pain is improved but still present. No nausea or vomiting. OBJECTIVE: Vital Signs: Blood pressure 125/53, heart rate 56, respiration 18, afebrile. Intake 2.7 L. Output 2.1 L. PHYSICAL EXAMINATION: General: No acute distress. Skin: Warm and dry. Neck: Neck veins are not distended. Heart: Regular. No gallops. Lungs: Equal. No crackles. Abdomen: Soft, nontender. Bowel sounds present. Extremities: No edema, clubbing or cyanosis. IMPRESSION: 1. Acute kidney injury. Progressive improvement. Excellent urine output. 2. Electrolytes/acid base in target. Baseline creatinine 1.2 to 1.4. 3. Continue current care. cc: MD Den Hart MD
[2019-06-03] MEDS: NS + KCL 20 MEQ 1,000 ML IV SCH ×2 (03:47→14:29)
[2019-06-03 07:10] LABS: ALB/GLOB RATIO 0.6; CREATININE 3.7 mg/dL (0.5-0.9); HEMATOCRIT 21.7 % (37.0-47.0); HEMOGLOBIN 7.2 g/dL (12.0-16.0); MCH 27.1 PG (27-31); MCHC 33.2 g/dL (33-37); MCV 81.6 FL (81-99); MPV 9.9 FL (7.4-10.4); POTASSIUM 4.2 mmol/L (3.5-5.1); RBC 2.66 XMIL (4.2-5.4); RDW 14.2 % (11.5-14.5); TOTAL BILIRUBIN 0.76 mg/dL (0.20-1.00); TOTAL PROTEIN 5.5 g/dL (6.3-8.3); WBC 8.32 X1000 (4.8-10.8)
[2019-06-03] MEDS: ROCEPHIN 1 GM in NS 50 ML IV SCH (08:44)
[2019-06-03] MEDS: KEPPRA PO SCH ×3 (08:44→19:42)
--- NOTE | 2019-06-03 10:17 | PROGRESS NOTE ---
DATE: 06/03/2019 SUBJECTIVE: Ms. Lemos is doing better, tolerating fluid well. Urine output is good. The patient is complaining of pain in the right ear. No nausea or vomiting. No chest pain. OBJECTIVE: Vital signs: Noted. Blood pressure is satisfactory. T-max was 99 degrees. Neck: Supple. No JVD. Lungs: Bibasilar crepitations. Heart: S1 and S2 heard. Abdomen: Soft, nontender. Bowel sounds present. Extremities: No cyanosis or clubbing. No acute DVT. ELECTRONIC SCALE SUBASSEMBLER: Alert, awake, able to move all 4 limbs. LABORATORY DATA: Noted. Hemoglobin today 7.2, hematocrit 21.7, WBC count 8.32. Electrolytes with BUN of 70, creatinine 3.7 which is gradually improving. ASSESSMENT: 1. Acute renal failure. 2. Seizure disorder. 3. Chronic ear ache on the right side. 4. Anemia of chronic disease. PLAN: I had a lengthy discussion with son about the patient's condition and plan. The patient lives by herself. I recommended short-term rehab, and they are in agreement. I am also giving her 1 unit of packed RBC. Overall plan discussed, and they are in agreement. cc: Den Eqsuivel MD
[2019-06-03] MEDS ORDERED: NS 500 ML ONE (13:32)
--- NOTE | 2019-06-04 07:15 | PROGRESS NOTE ---
DATE: 06/04/2019 SUBJECTIVE: Ms. Lemos is feeling better. The patient does have a cough, mainly dry. No high-grade fever or chills. Occasional pain in the right ear. No drainage. No dysuria or hematuria. Urine output is good. OBJECTIVE: Vital Signs: Noted. Neck: Supple. No JVD. Lungs: A few basilar crepitations. CVS: S1 and S2 heard. Abdomen: Soft, nontender. Bowel sounds present. PROPELLANT CHARGE ZONE ASSEMBLER: Alert, awake. Able to move all 4 limbs. CONSIDERATION: 1. Acute kidney injury, clinically improving. 2. Right earache. I am going to discuss with radiologist about CT scan of the ear and then order the test. 3. Seizure disorder, on Keppra. 4. Anemia of chronic disease, status post 1 unit of packed red blood cells. PLAN: Overall, the patient is doing better. We are waiting for shelter bed. Once the patient is okay, we will discharge patient soon. Discharge plan discussed with the son and he is in agreement. cc: Den Esquivel MD
[2019-06-04] MEDS: ROCEPHIN 1 GM in NS 50 ML IV SCH (08:09)
[2019-06-04] MEDS: KEPPRA PO SCH ×2 (08:09→20:07)
[2019-06-04 08:36] LABS: ALBUMIN 2.3 g/dL (3.5-5.0); CALCIUM 8.4 mg/dL (8.8-10.2); CREATININE 2.2 mg/dL (0.5-0.9); PHOSPHORUS 3.7 mg/dL (2.7-4.5); POTASSIUM 4.2 mmol/L (3.5-5.1)
--- NOTE | 2019-06-04 09:07 | Diag Imaging Result Doc PS360 ---
EXAM: CHEST-2 VIEWS 06/04/2019 HISTORY: hypoxia TECHNIQUE: PA and lateral chest COMMENT: There is opacification of the posterior costophrenic sulci bilaterally. Some of this may be due to fluid but there is at least some component of atelectasis or pneumonia. The findings were also present on 06/02/2019. There are some scattered granulomata particularly in the left lung. The heart size and primary vascularity are within normal limits. IMPRESSION: Bibasilar atelectasis and pleural effusions. Electronically signed by Kolby Leon 06/04/2019 9:05 AM
--- NOTE | 2019-06-04 09:23 | Diag Imaging Result Doc PS360 ---
EXAM: CT TEMPORAL BONES W/O CON 06/04/2019 HISTORY: Ear Pain TECHNIQUE: This exam was performed using automated exposure control, adjustment of mA or kV according to patient size, and/or use of iterative reconstruction technique. COMMENT: There is no definite evidence of soft tissue abnormality intracranially or within the orbits and visualized portions of the face. There is calcification in the internal carotid arteries bilaterally. The visualized paranasal sinuses are clear. There is no evidence of mastoid effusion or middle ear fluid. The middle ear ossicles are intact in appearance. There is no evidence of bony erosion. The internal auditory canals are normal and symmetrical in appearance. IMPRESSION: No evidence of acute disease. Electronically signed by Kolby Leon 06/04/2019 9:20 AM
--- NOTE | 2019-06-04 09:43 | NEPHROLOGY PROGRESS NOTE ---
DATE: 06/04/2019 SUBJECTIVE: Ms. Lemos is resting quietly in bed. Skin is warm and dry. She has no complaints of chest pain or increased work of breathing. States that she has been getting up out of her bed into a chair assisting with physical therapy. OBJECTIVE: Vital Signs: Temperature 98.8 degrees, blood pressure 138/50, heart rate 61 respirations 14. She is on room air. Last recorded saturation 95%. She has had 1830 in and 900 out to Jeffries catheter. Laboratory Data: Sodium is 146, potassium is 4.2, chloride 111, CO2 25, BUN is 46, creatinine is 2.2. Her glucose is 103. Her anion gap is 10. Calcium is 8.4, phosphorus 3.7, albumin is 2.3. Previous hemoglobin 7.2. General: This is a 73-year-old female resting quietly in bed. Skin: Warm and dry. HEENT: Normocephalic, atraumatic. Conjunctiva is pale pink. She has FERMIN. Mucous membranes are dry. Neck: Supple. Trachea midline. She has 6 cm JVD. Cardiovascular: Regular rate and rhythm. S4 is present. Lungs: Clear to auscultation bilaterally. Equal excursion on room air. Abdomen: Soft, nontender. Positive bowel sounds. Genitourinary: Not inspected. Jeffries catheter is in place. Extremities: Have trace lower extremity edema. No clubbing or cyanosis. Neurological: She is alert and oriented x3. ASSESSMENT AND PLAN: 1. Acute kidney injury. Patient has progressive improvement. BUN of 46, creatinine down to 2.2 from 3.7. Adequate urine output. No indications for intervention. We will stop her IV fluids today. We have discussed discontinuing her Jeffries catheter. 2. Electrolytes and acid-base balance. These are acceptable. 3. Anemia. This remains very low, hemoglobin of 7.2. This is followed by the primary care. The patient had received 1 unit of packed red blood cells. 4. Seizures. Patient remains on Keppra. 5. Placement. The patient is waiting for longterm bed. Discharge per primary care. We will plan for follow up in our office upon discharge within 3 to 4 weeks after rehab. I would to thank you for allowing us to follow with this patient. Dictated by DAGMAR Billingsley for Mark Ferreira MD Face to face encounter, data reviewed, discussed with Robyn Sandoval on 06/04/19. I agree with the above assessment and plan of care. cc: DAGMAR Billingsley MD Bharat K. Vakharia, MD [facility]
[2019-06-04 12:25] LABS: HEPATITIS PROFILE ACUTE SEE COMMENTS
[2019-06-04] MEDS: POTASSIUM CHLORIDE 10 MEQ in NS 1,000 ML IV SCH (15:05)
[2019-06-04] MEDS: DUONEB (A & A) INH SCH ×2 (15:41→22:02)
[2019-06-05] MEDS: POTASSIUM CHLORIDE 10 MEQ in NS 1,000 ML IV SCH (02:58)
[2019-06-05] MEDS: DUONEB (A & A) INH SCH ×2 (03:43→10:10)
[2019-06-05 07:08] LABS: BASO# 0.02 X1000 (0.0-0.2); BASO% 0.3 % (0.0-0.8); EOS# 0.09 X1000 (0.0-0.7); EOS% 1.2 % (0.0-10.0); HEMATOCRIT 25.4 % (37.0-47.0); HEMOGLOBIN 8.2 g/dL (12.0-16.0); IMM GRAN# 0.05 X1000 (0.0-0.04); IMM GRAN% 0.7 % (0.0-0.5); LYMPH% 14.8 % (20.5-51.1); MCH 27.2 PG (27-31); MCHC 32.3 g/dL (33-37); MCV 84.4 FL (81-99); MONO# 0.48 X1000 (0.11-0.59); MONO% 6.5 % (1.7-9.3); MPV 9.7 FL (7.4-10.4); NEUT# 5.68 X1000 (1.4-6.5); NEUT% 76.5 % (42.2-75.2); PLT 287 X1000 (130-400); RBC 3.01 XMIL (4.2-5.4); RDW 14.4 % (11.5-14.5); WBC 7.42 X1000 (4.8-10.8)
--- NOTE | 2019-06-05 07:15 | DISCHARGE SUMMARY ---
ADMISSION DATE: 05/29/2019 DISCHARGE DATE: FINAL DISCHARGE DIAGNOSES: 1. Acute renal failure, most likely acute tubular necrosis. 2. Hypertension. 3. Metabolic encephalopathy. 4. Anemia of chronic disease. 5. Urinary tract infection. 6. Seizure disorder. 7. Found to have hepatitis C. 8. Chronic right earache. 9. History of cerebrovascular accident. 10. Situational depression. 11. Gastritis. HISTORY AND HOSPITAL COURSE: Ms. Lemos is a 73-year-old patient, admitted with confusion, found to have some earache. The patient went to [facility]gent [facility] Center, where she was given some medications. The patient was feeling cold. She had increasing confusion. According to son, the patient was not looking right. The patient was not able to provide good history. In the emergency room, the patient was found to have acute renal failure, metabolic encephalopathy. The patient was admitted to telemetry bed. The patient was started on IV hydration and close observation. I started her on IV antibiotics because she was complaining of chronic pain in the right ear. Initially, we thought it could be related to sulfa drug causing acute renal failure, but the patient did not receive any sulfa drug. She had doxycycline from the urgent care. Nephrology consult obtained with Dr. Ferreira. The patient responded well to hydration. Her renal function gradually improved. The patient's hemoglobin and hematocrit dropped. Her last hemoglobin was 7.2, when I gave her 1 unit of packed RBC. I am going to check post-transfusion CBC today. The patient's urine output was much better. Because of persistent pain, I did CT scan of the right temporal bone, and it did not show any major pathology. Overall, the patient's clinical condition stabilized and improved. The patient was living by herself. She was feeling weak. I decided to send her to [facility] for [facility]. PHYSICAL EXAMINATION: Vital Signs: Blood pressure 141/63, pulse 59, respirations 20, temperature 98.7 degrees. Skin: Senile turgor. Neck: Supple. No JVD. Lungs: Bibasilar crepitation. Heart: S1 and S2 heard. Abdomen: Soft, globular. Bowel sounds present. BALE COVERER: Alert, awake. Answering questions fair. Able to move all 4 limbs. IMAGING AND LABORATORY DATA: Lab data ordered for today is pending, but electrolytes done yesterday were showing improvement. BUN yesterday was 46, creatinine 2.2. I am going to check electrolytes ordered for today, and also the CBC. CT scan of the right temporal bone: No definite evidence of soft tissue abnormality intracranially or within the orbits and visualized portion of the face. Calcification in the internal carotid arteries bilaterally. No evidence of mastoid infusion or middle ear fluid. The middle ear ossicles are intact in appearance. No evidence of bony erosion. Internal auditory canals are normal and symmetrical in appearance. Overall impression: No evidence of acute disease. Her last chest x-ray done on 06/04/2019 showed bibasilar atelectasis and/or effusion. Urine culture was no growth. I did hepatitis panel, and it was positive for hepatitis C. On anemia profile, her ferritin was 627, iron saturation was 13, TIBC 127. Magnesium was 1.8. Her anemia was most likely of chronic disease. Overall, the patient received maximum benefit of hospitalization. The patient had renal ultrasound done. There was no evidence of obstructive uropathy. Her CT scan of the brain did reveal chronic encephalomalacia. No evidence of acute disease. Will discharge the patient. I am going to resume her Norvasc. Plenty of liquids orally. Physical therapy. I am going to monitor renal function. Fall precautions. Monitor blood pressure. Overall discharge condition is satisfactory. The patient was on Celexa, which I am going to resume. cc: Den Esquivel MD
[2019-06-05] MEDS: ROCEPHIN 1 GM in NS 50 ML IV SCH (07:54)
[2019-06-05 08:01] LABS: ALBUMIN 2.2 g/dL (3.5-5.0); CALCIUM 8.2 mg/dL (8.8-10.2); CREATININE 1.7 mg/dL (0.5-0.9); POTASSIUM 4.1 mmol/L (3.5-5.1)
[2019-06-05] MEDS: KEPPRA PO SCH (08:05)
[2019-06-05 08:40] VITALS: BP 145/63
--- NOTE | 2019-06-05 09:02 | NEPHROLOGY PROGRESS NOTE ---
DATE: 06/05/2019 TIME SEEN: 0650. SUBJECTIVE: Ms. Lemos is resting quietly in bed. States that she is feeling better. She is waiting for discharge and placement for discharge. OBJECTIVE: Vital Signs: Temperature 98.7 degrees, blood pressure 141/63, heart rate 59, respirations 20. She is on room air. Last recorded saturation 100%. She has had 1100 in and 2500 out. Laboratory Data: Sodium is 143, potassium 4.1, chloride is 110, CO2 is 25, BUN 37, creatinine 1.7, glucose 129, her anion gap is 8, her calcium 8.2, phosphorus is 4, albumin is 2.2. White count 7.42, hemoglobin 8.2, hematocrit 25.4, with a platelet count of 287,000. Physical Examination: General: This is a 73-year-old, female resting quietly in bed. She appears chronically ill. No acute distress. Skin is warm and dry. HEENT: Normocephalic, atraumatic. Conjunctivae are pale pink. She has FERMIN. Mucous membranes are dry. Neck: Supple. Trachea midline. She does have positive JVD, 8 cm. Cardiovascular: She is regular rate and rhythm. S4 is present. Lungs: Clear to auscultation bilaterally. Equal excursion, on room air. Abdomen: Soft, nontender. Positive bowel sounds. Genitourinary: Not inspected. Adequate urine out is documented to Jeffries. Extremities: Have no edema. No clubbing or cyanosis. ASSESSMENT AND PLAN: 1. Acute kidney injury. Patient continues to have progressive improvement. Her BUN is 37, creatinine is 1.7. Adequate urine output is documented. Stop IV fluids. 2. Acid-base balance. This is acceptable. 3. Anemia. This remains low but stable. 4. Seizures. Patient remains on Keppra. 5. Placement. We will defer to the primary care team. I would like to thank you for allowing us to follow with this patient. Dictated by DAGMAR Billingsley for Mark Ferreira MD Face to face encounter, data reviewed, discussed with Robyn Sandoval on 06/05/19. I agree with the above assessment and plan of care. cc: DAGMAR Billingsley MD Bharat K. Vakharia, MD MTDD
[2019-06-06 12:54] LABS: HCV BY PCR SEE COMMENTS
== END 2019-06-05 12:38 | DRG 682 ==
LOC: P.ED 19:59 → 3N 23:30 → SUATTDRO 23:30
PROVIDERS: ADMIT Internal Medicine; ATTEND Internal Medicine

== ENCOUNTER 2019-11-06 14:50 | Inpatient (IN) ==
[2019-11-06] MEDS ORDERED: ZOFRAN IV PRN (15:58)
[2019-11-06] MEDS ORDERED: NS 1,000 ML IV SCH (16:00)
--- NOTE | 2019-11-06 16:15 | Diag Imaging Result Doc PS360 ---
CHEST-PORTABLE - 11/06/2019 INDICATION: pain COMPARISON: 06/04/2019 FINDINGS: Lung volumes are severely low. No definite infiltrates. The heart size is normal. IMPRESSION: Low lung volumes but no acute disease. Electronically signed by Zeferino Hagen 11/06/2019 4:13 PM
--- NOTE | 2019-11-06 16:16 | EKG Report ---
Test Performed on : 11/06/2019 4:07:29 PM Test Reason : pain Blood Pressure : / mmHG Vent. Rate : 070 BPM Atrial Rate : 070 BPM P-R Int : 220 ms QRS Dur : 110 ms QT Int : 498 ms P-R-T Axes : 046 035 -15 degrees QTc Int : 537 ms Critical Test Result: STEMI Sinus rhythm. with sinus arrhythmia. with 1st degree AV block. Anterior infarct , new Inferolateral injury pattern Prolonged QT ACUTE HI / STEMI Consider right ventricular involvement in acute inferior infarct Abnormal ECG When compared with ECG of 25-JUN-2017 01:30, CA interval has increased QRS duration has increased Acute Anterior infarct is now present Confirmed by Torres EVANGELISTA, Jose Luis Mancia ([id number]) on 11/08/2019 2:33:36 PM
[2019-11-06] MEDS ORDERED: ASPIRIN PO ONE (17:09)
[2019-11-06 17:12] LABS: BASO# 0.03 X1000 (0.0-0.2); BASO% 0.4 % (0.0-0.8); HEMOGLOBIN 11.9 g/dL (12.0-16.0); IMM GRAN# 0.02 X1000 (0.0-0.04); IMM GRAN% 0.3 % (0.0-0.5); LYMPH% 10.8 % (20.5-51.1); MCH 27.3 PG (27-31); MCHC 30.5 g/dL (33-37); MCV 89.4 FL (81-99); MONO# 0.22 X1000 (0.11-0.59); MPV 10.2 FL (7.4-10.4); NEUT# 6.36 X1000 (1.4-6.5); NEUT% 85.5 % (42.2-75.2); PLT 168 X1000 (130-400); RBC 4.36 XMIL (4.2-5.4); RDW 13.5 % (11.5-14.5); WBC 7.43 X1000 (4.8-10.8)
[2019-11-06] MEDS ORDERED: ASPIRIN ONE (17:12)
[2019-11-06 17:26] LABS: ALB/GLOB RATIO 0.9; ALBUMIN 4.1 g/dL (3.5-5.0); CALCIUM 9.6 mg/dL (8.8-10.2); CREATININE 1.1 mg/dL (0.5-0.9); POTASSIUM 3.8 mmol/L (3.5-5.1); TOTAL BILIRUBIN 0.44 mg/dL (0.20-1.00); TOTAL PROTEIN 8.5 g/dL (6.3-8.3)
[2019-11-06] MEDS ORDERED: HEPARIN 25,000 UNITS/D5W 25,000 UNIT/250 ML IV.SOLN IV SCH (17:45)
[2019-11-06] MEDS ORDERED: HEPARIN IV ONE (17:52)
[2019-11-06] MEDS ORDERED: ASPIRIN PR SCH (18:00)
[2019-11-06 18:35] VITALS: BP 149/80
--- NOTE | 2019-11-06 20:28 | HISTORY AND PHYSICAL ---
CHIEF COMPLAINT: Vomiting and diarrhea. HISTORY OF PRESENT ILLNESS: Ms. Lemos is a 73-year-old patient, known case of hypertension, hyperlipidemia, history of CVA in the past. Patient was in her usual state of health until yesterday evening, 5 p.m. Patient started getting sick last night according to patient. Patient had nausea and vomiting, also diarrhea. Patient claimed she vomited multiple times and she also had some loose bowel movement. Patient had some epigastric discomfort. Patient denied any hematemesis or melena. Patient was feeling weak. Her last vomitus was around 8 a.m. this morning. Patient denied eating anything outside. Nobody else in the family is sick with similar illness. No fever. Patient did have some chills. Patient was feeling weak. Patient had epigastric pain and pain between her lower breast. No associated sweating. Patient is very vague and a poor historian. Patient was feeling weak. No diaphoresis. I evaluated patient in the office and I decided to admit patient for further care. No diplopia or neck stiffness. Denied any leg swelling. No joint swelling or redness. No focal weakness. HOME MEDICATIONS: Keppra, lipid lowering agent, blood pressure medication, Norvasc, Clonidine, Celexa, Zofran, enteric-coated aspirin daily, nebulizer treatment, Tylenol. PAST MEDICAL HISTORY: 1. Hypertension. 2. Hyperlipidemia. 3. History of CVA. 4. Situational depression. 5. Seizure disorder. PERSONAL HISTORY: Single. Lives by herself. Nonsmoker. Denied alcohol or substance abuse. Fairly independent in activities of daily living. REVIEW OF SYSTEMS: As per HPI. PHYSICAL EXAMINATION: SKIN: Senile turgor. HEENT: Head atraumatic, normocephalic. [place] conjunctivae. Anicteric sclerae. Extraocular muscle movement normal. Fundus cannot be penetrated. Good oral hygiene. No tonsillopharyngeal congestion or exudate. Ears and nose benign. NECK: Supple. No JVD, thyromegaly or lymphadenopathy. CHEST: Bilateral good air entry present. Patient's admission EKG did reveal acute ST-elevation in the inferior lead and also ST elevation in the anterolateral lead. CONSIDERATION: Patient's initial consideration was gastroenteritis. Electrocardiogram revealed acute myocardial infarction. cc: Den Esquivel MD
[2019-11-07] MEDS ORDERED: PROTONIX IV SCH (09:00)
[2019-11-07] MEDS ORDERED: LOVENOX SUBQ SCH (09:00)
[2019-11-07] MEDS ORDERED: SODIUM CHLORIDE 0.9% INJ SCH (09:00)
--- NOTE | 2019-11-07 09:39 | HISTORY AND PHYSICAL ---
CONTINUATION REPORT: PHYSICAL EXAMINATION: ABDOMEN: Soft. No distention. Bowel sounds present. Mild tenderness epigastrium. No guarding or rigidity. EXTREMITIES: No cyanosis, clubbing. No acute DVT. Peripheral pulsation intact. ART CONSERVATOR: Alert, awake, able to move all 4 limbs. DATA: Patient admission EKG noted which revealed ST elevation in the inferior and anterolateral leads suggestive of acute myocardial infarction. I did order a her troponin which is pending. The patient's admission lab data revealed WBC count 7.43, hemoglobin 11.9, hematocrit 39, platelet count 168,000. Electrolytes were fairly benign. BUN 16, creatinine 1.1. AST was 114. Patient's chest x-ray revealed low lung volumes. CONSIDERATION: 1. Patient presentation was gastroenteritis with diarrhea and vomiting. EKG revealed acute ST elevation myocardial infarction. The patient does have multiple risk factors in the form of hypertension, hyperlipidemia. 2. Her other problems include hypertension, hyperlipidemia, seizure disorder, history of stroke. The patient's son was present. I did discuss her condition with the son, discussed her presentation with the platform material handler manager at [place], DR. Hathaway at the cath lab nurse who accepted the patient and we will transfer the patient to [facility] via ACLS team in stable condition. Risks and benefits of transfer explained to the family, her son, and they are in agreement. The patient was acutely ill. TIME ATTESTATION: Critical care time spent was at least 35 to 40 minutes. cc: Den Esquivel MD
== END 2019-11-06 18:24 | disposition short-term general hospital (02) | DRG 282 ==
LOC: DIRADM 14:50 → EDIPHOLD 15:19
PROVIDERS: ADMIT Internal Medicine; ATTEND Internal Medicine